=== PATIENT | male | born 1975 | race Caucasian/White ===

== ENCOUNTER → 2020-01-26 | Outpatient (CLI) | payer OTHER ==
[~2020-01-26] MED LIST: ALBU90OI INH; AMOCLA875 PO; Augmentin 875-1 EACH PO; CEPH500 PO; CLAR500 PO; GUAI600ER PO; HYDACE5 PO; IBUP800 PO; PSEU120ER PO; SULTRIDS PO
== END ==
LOC: LAB 11:00
DX: J02.9 Acute pharyngitis, unspecified (principal)
CPT/HCPCS: 87081

== ENCOUNTER 2020-01-28 11:14 | Emergency (ER) | payer OTHER ==
[~2020-01-28] VITALS: Ht 165.1 cm; Wt 72.6 kg
[~2020-01-28 11:14] MED LIST changes: -AMOCLA875 PO
[2020-01-28] MEDS ORDERED: AMOCLA875 PO (13:09)
== END 2020-01-28 13:18 | disposition home or self-care (01) ==
LOC: ER 11:14
DX: J36 Peritonsillar abscess (principal); F17.200 Nicotine dependence, unspecified, uncomplicated
CPT/HCPCS: 36415; 42700; 96365-59; 96375-59; 99283-25; J0295; J1100; J3010